=== PATIENT | male | born 1980 | race Caucasian/White ===

== ENCOUNTER 2021-07-31 13:23 | Inpatient (IN) | payer MEDICARE, OTHER ==
[~2021-07-31] VITALS: Ht 188 cm; Wt 120.7 kg
[2021-07-31 14:30] LABS: MEAN CORPUSCULAR HEMOGLOBIN 26.4 uug (23.8-33.4); MEAN CORPUSCULAR VOLUME 80.8 fL (73.0-96.2); PLATELET COUNT (AUTO) 493 K/uL (152-348)
[2021-07-31 14:37] LABS: BILIRUBIN,DIRECT 0.1 mg/dL (0.0-0.2); BILIRUBIN,TOTAL 0.3 mg/dL (0.2-1.0); CREATININE 2.6 mg/dL (0.6-1.3); POTASSIUM 4.8 mmol/L (3.5-5.1); TOTAL PROTEIN, SERUM 7.7 g/dL (6.4-8.2)
[2021-07-31] MEDS ORDERED: FERR325T28 PO (15:05)
[2021-07-31] MEDS ORDERED: METF-440 PO (15:05)
[2021-07-31] MEDS ORDERED: ASPI81TA31 PO (15:05)
[2021-07-31] MEDS ORDERED: B/P MEDICATION (15:06)
--- NOTE | 2021-07-31 15:56 | NUR ---
Patient is resting comfortably on gurney, pending blood product at this time.
--- NOTE | 2021-07-31 17:06 | NUR ---
DR [email or web address] evaluating patient in ER.
[2021-07-31] MEDS ORDERED: IV NORMAL SALINE 1000 ML BAG IV ONE (18:30)
--- NOTE | 2021-07-31 19:02 | NUR ---
Patient ate hospital-prepared dinner with good appetite. He is now resting and watching shows with his bedside TV. He is calm and cooperative. 1st unit of PRBC is infusing well. No adverse rxn seen. SBAR to GOSIA Parker and MARY ANN Nuñez. Patient is for admission for severe anemia, pending available medical-surgical nurse and [email or web address] time.
[2021-07-31] MEDS ORDERED: IV D5 1/2 NS 1000 ML 1,000 ML IV PRN (19:30)
[2021-07-31] MEDS ORDERED: ONDANSETRON 4 MG/2 ML VIAL IV PRN (19:30)
[2021-07-31] MEDS ORDERED: MORPHINE SULFATE 2 MG/1 ML DISP.SYRIN IV PRN (19:30)
[2021-07-31] MEDS ORDERED: ACETAMINOPHEN 650 MG SUPP.RECT RC PRN (19:30)
[2021-07-31] MEDS ORDERED: ENALAPRILAT DIHYDRATE 1.25 MG/1 ML VIAL IV PRN (19:30)
[2021-07-31 19:42] LABS: IRON, SERUM 11 ug/dL (50-175)
--- NOTE | 2021-07-31 21:00 | NUR ---
TOLERATED 1ST UNIT OF PRBC WITH NO REACTION NOTED.
[2021-07-31 22:40] LABS: BAND % (MANUAL) 2 % (0-10); LYMPHOCYTES % (MANUAL) 9 % (20-40); MONOCYTES % (MANUAL) 6 % (2-10); NEUTROPHILS % (MANUAL) 83 % (42-75)
[2021-07-31 22:45] VITALS: BP 112/52
--- NOTE | 2021-07-31 22:45 | NUR ---
Received patient from ED via stretcher accompanied by 2 staff members, without any incident. Patient is awake, lying in bed, resting comfortably. A/Ox4. Denies pain nor dizziness at this time. No signs of acute distress noted. Able to make needs known. Placed on patient's gown. Comfort care provided. Checked IV site patent and flushed saline lock. No erythema, bleeding or infiltration noted. Bed at lowest position, brakes on, siderails x2. Call light within reach. Will continue to monitor.
--- NOTE | 2021-07-31 22:48 | NUR ---
Personal belongings list checked done. Body assessment done. Skin is intact.
[2021-08-01] VITALS (9 sets, daily range): BP systolic 101–126; BP diastolic 32–66
--- NOTE | 2021-08-01 01:00 | NUR ---
Received portable school lunch monitor from communications equipment supervisor herson, placed EKG leads on patient,. SR on the monitor. No signs of acute distress noted. Will continue to monitor.
--- NOTE | 2021-08-01 01:10 | NUR ---
Printed EKG strip and placed on chart.
--- NOTE | 2021-08-01 06:30 | NUR ---
Patient vomited amounting to 100mls of blood with blood clots. Patient stated "I'm not dizzy. I feel fine." Pale skin noted. No signs of acute distress. Zofran PRN given. VS taken HR 1066, O2 sat 96%, BP 90/36. Modified Trendelenburg done. Called [facility] exchange and spoke with Wilian, awaiting for callback. Will continue to monitor and endorsed to AM shift RN. Addendum: 08/01/21 at 0735 by Mayda Danielle RN Charge nurse made aware.
[2021-08-01 07:15] LABS: MEAN CORPUSCULAR HEMOGLOBIN 26.6 uug (23.8-33.4); MEAN CORPUSCULAR VOLUME 80.3 fL (73.0-96.2); PLATELET COUNT (AUTO) 498 K/uL (152-348)
[2021-08-01 07:38] LABS: THYROID STIMULATING HORMONE 0.826 mIU/mL (0.358-3.740)
[2021-08-01 07:45] LABS: BILIRUBIN,TOTAL 0.6 mg/dL (0.2-1.0); MAGNESIUM 1.9 mg/dL (1.8-2.4); PHOSPHOROUS 4.5 mg/dL (2.5-4.9); POTASSIUM 4.6 mmol/L (3.5-5.1); TOTAL PROTEIN, SERUM 6.9 g/dL (6.4-8.2)
--- NOTE | 2021-08-01 07:50 | NUR ---
Dr. castro notified of pt with x1 episode of vomiting blood at this time. patient remains npo at this time, awake, states "feeling ok" reminded he is to not intake anything by mouth. Patient states understanding.
[2021-08-01] MEDS ORDERED: PANTOPRAZOLE SODIUM 40 MG VIAL IV SCH (09:00)
[2021-08-01 09:21] LABS: HEMATOCRIT 18.7 % (36.7-47.1)
[2021-08-01] MEDS: PANTOPRAZOLE SODIUM 40 MG VIAL IV SCH ×2 (09:46→20:18)
--- NOTE | 2021-08-01 12:00 | NUR ---
patient picked up by or for egd.
[2021-08-01] MEDS ORDERED: SUCCINYLCHOLINE CHLORIDE 200 MG/10 ML VIAL IV ONE (13:46)
[2021-08-01] MEDS ORDERED: SEVOFLURANE 250 ML BOTTLE IH ONE (13:46)
[2021-08-01] MEDS ORDERED: PROPOFOL 200 MG/20 ML BOTTLE IV ONE (13:46)
[2021-08-01] MEDS ORDERED: LIDOCAINE-MPF 2% 5 ML VIAL IJ ONE (13:46)
--- NOTE | 2021-08-01 15:00 | NUR ---
patient returned from egd, patient is currently infusing prbc at 125/hr, per report infusion started at 1439, patient is awake at this time and able to make needs known. Orders from OR are to transfuse 1 unit after the unit that is running is finished. order noted. vital signs in unit are bp 100/50 p: 99 t: 98.1 rr: 22. patient denies pain at this time. no c.o n/v at this time. reminded to use call light for assistance
[2021-08-01 15:36] LABS: LYMPHOCYTES % (MANUAL) 14 % (20-40); MONOCYTES % (MANUAL) 6 % (2-10); NEUTROPHILS % (MANUAL) 80 % (42-75)
--- NOTE | 2021-08-01 19:25 | NUR ---
patient stable at this time, report given to oncoming nurse, currently running prbc no s/s of allergic reaction. v/s wnl, afebrile
[2021-08-01] MEDS: IV NS 1000 ML 1,000 ML IV PRN (20:19)
[2021-08-01 20:32] LABS: *BILIRUBIN,URIN NEGATIVE (NEGATIVE); *BLOOD, URINE NEGATIVE (NEGATIVE); *CLARITY,URINE CLEAR (CLEAR); *COLOR,URINE YELLOW (YELLOW); *KETONES,URINE NEGATIVE (NEGATIVE); *UROBILINOGEN,URINE 0.2 E.U./dl (NORMAL); LEUKOCYTE ESTERASE ,URINE NEGATIVE (NEGATIVE); NITRITE, URINE NEGATIVE (NEGATIVE); UGLUCOSE NEGATIVE (NEGATIVE)
[2021-08-02] VITALS (13 sets, daily range): BP systolic 93–125; BP diastolic 36–68
[2021-08-02] MEDS: IV NS 1000 ML 1,000 ML IV PRN ×2 (04:48→13:47)
--- NOTE | 2021-08-02 05:39 | NUR ---
END OF SHIFT RE tolerated 2nd unit PRBC last night; new IVF started per Dr Guerrier' orders; tolerated ice chips; no bleeding noted; care plan explained; pt refused to have a bath and be changed; educated with the importance of hygiene; dc AC IV and new IV to right forearm; continue to monitor; continue plan of care.
[2021-08-02 06:52] LABS: MEAN CORPUSCULAR HEMOGLOBIN 27.3 uug (23.8-33.4); MEAN CORPUSCULAR VOLUME 82.4 fL (73.0-96.2); PLATELET COUNT (AUTO) 421 K/uL (152-348)
[2021-08-02 07:09] LABS: CREATININE 2.2 mg/dL (0.6-1.3); MAGNESIUM 1.8 mg/dL (1.8-2.4); PHOSPHOROUS 3.8 mg/dL (2.5-4.9); POTASSIUM 4.6 mmol/L (3.5-5.1)
[2021-08-02 09:29] LABS: HEMATOCRIT 18.9 % (36.7-47.1)
[2021-08-02] MEDS ORDERED: FUROSEMIDE 20 MG/2 ML VIAL IV PRN (09:45)
[2021-08-02] MEDS: PANTOPRAZOLE SODIUM 40 MG VIAL IV SCH ×2 (09:50→20:01)
--- NOTE | 2021-08-02 15:40 | NUR ---
transfusion started, patient with v/s wnl at this time, no signs of adverse reaction at this time.
[2021-08-03] VITALS (7 sets, daily range): BP systolic 100–135; BP diastolic 42–75
--- NOTE | 2021-08-03 06:11 | NUR ---
Slept intermittently throughout the night. Denies pain or SOB. Received 1 unit PRBCs, tolerated well with no side affects. IV site infiltrated, new IV inserted. Pt able to make needs known. No other issues or concerns at this time, will endorse to day shift.
[2021-08-03] MEDS: IV NS 1000 ML 1,000 ML IV PRN (06:15)
[2021-08-03 09:14] LABS: HEMATOCRIT 22.7 % (36.7-47.1); MEAN CORPUSCULAR HEMOGLOBIN 28.1 uug (23.8-33.4); MEAN CORPUSCULAR VOLUME 84.8 fL (73.0-96.2); PLATELET COUNT (AUTO) 367 K/uL (152-348)
[2021-08-03 09:30] LABS: CREATININE 1.3 mg/dL (0.6-1.3); MAGNESIUM 1.7 mg/dL (1.8-2.4); PHOSPHOROUS 3.4 mg/dL (2.5-4.9)
[2021-08-03] MEDS: PANTOPRAZOLE SODIUM 40 MG VIAL IV SCH ×2 (10:02→21:21)
[2021-08-03] MEDS: MAGNESIUM OXIDE 400 MG TABLET PO ONE ×2 (14:21→15:14)
[2021-08-04 00:48] VITALS: BP 125/71
--- NOTE | 2021-08-04 00:50 | NUR ---
PATIENT AWAKE IN BED. 1ST UNIT OF BLOOD STARTED TO LEFT AC #20 GAUGE. VS WNL. WILL CONTINUE TO MONITOR AND ASSESS.
[2021-08-04 01:07] VITALS: BP 116/69
[2021-08-04 01:32] VITALS: BP 132/68
[2021-08-04 03:45] VITALS: BP 138/76
--- NOTE | 2021-08-04 03:50 | NUR ---
UNIT OF BLOOD TRANSFUSED. TOLERATED WELL. VSS. NO RESP. DISTRESS NOTED. WILL CONTINUE TO MONITOR AND ASSESS.
[2021-08-04 04:27] VITALS: BP 113/70
[2021-08-04 07:56] LABS: HEMATOCRIT 24.1 % (36.7-47.1); MEAN CORPUSCULAR HEMOGLOBIN 28.8 uug (23.8-33.4); MEAN CORPUSCULAR VOLUME 85.6 fL (73.0-96.2); PLATELET COUNT (AUTO) 325 K/uL (152-348)
--- NOTE | 2021-08-04 08:00 | NUR ---
awake alert and oriented, denies of any discomfort, no bleeding noted, explaiined plan fo care- verbalized understanding, safety measures maintained, call light within reach
[2021-08-04 08:04] LABS: CREATININE 1.2 mg/dL (0.6-1.3); MAGNESIUM 1.6 mg/dL (1.8-2.4); PHOSPHOROUS 3.5 mg/dL (2.5-4.9); POTASSIUM 4.4 mmol/L (3.5-5.1)
[2021-08-04] MEDS: PANTOPRAZOLE SODIUM 40 MG VIAL IV SCH (08:30)
[2021-08-04] MEDS ORDERED: MAGNESIUM OXIDE 400 MG TABLET PO ONE (09:15)
[2021-08-04] MEDS ORDERED: PANT40TA49 PO (10:49)
[2021-08-04 11:08] VITALS: BP 122/67
--- NOTE | 2021-08-04 13:00 | NUR ---
seen by Dr Buitrago- pt is d/c today
--- NOTE | 2021-08-04 13:15 | NUR ---
discharge instructions given- verbalized understanding- informed of prescription at preferred pharmacy, states Yanely will pick him up- saline lock removed- no swelling/redness noted on site,
--- NOTE | 2021-08-04 14:30 | NUR ---
escorted to car per w/c in stable condition under Yanely's care- all belongings with him
[2021-08-04] MEDS ORDERED: PANTOPRAZOLE SODIUM 40 MG TABLET.DR PO SCH (17:00)
== END 2021-08-04 14:30 | disposition home or self-care (01) | DRG 377 ==
LOC: ER 13:23 → TRANSITION 20:40 → MEDSURG3 22:35 → TELE3 08-01 00:18 → MEDSURG3 08-02 10:38
PROVIDERS: ADMIT Internal Medicine; ATTEND Internal Medicine
PROC: 30233N1 Transfusion of Nonautologous Red Blood Cells into Peripheral Vein, Percutaneous Approach (ICD-10-PCS; principal; 2021-07-31)
PROC: 0DB68ZX Excision of Stomach, Via Natural or Artificial Opening Endoscopic, Diagnostic (ICD-10-PCS; 2021-08-01)
DX: K26.4 Chronic or unspecified duodenal ulcer with hemorrhage (principal); N17.0 Acute kidney failure with tubular necrosis; D62 Acute posthemorrhagic anemia; D72.828 Other elevated white blood cell count; E11.9 Type 2 diabetes mellitus without complications; E66.9 Obesity, unspecified; Z20.822 Contact with and (suspected) exposure to COVID-19; Z79.82 Long term (current) use of aspirin; Z79.84 Long term (current) use of oral hypoglycemic drugs; I95.9 Hypotension, unspecified; D50.9 Iron deficiency anemia, unspecified; N18.9 Chronic kidney disease, unspecified; I12.9 Hypertensive chronic kidney disease with stage 1 through stage 4 chronic kidney disease, or unspecified chronic kidney disease; Z68.34 Body mass index [BMI] 34.0-34.9, adult; K29.70 Gastritis, unspecified, without bleeding; I51.7 Cardiomegaly; R00.0 Tachycardia, unspecified; R62.50 Unspecified lack of expected normal physiological development in childhood; B96.81 Helicobacter pylori [H. pylori] as the cause of diseases classified elsewhere
CPT/HCPCS: 36415; 70030-TC; 71045; 76770; 83550; 83735; 84100; 84443; 85025; 86850; 86900; 86901; 86920; 88313-TC; 88342; 93005; 93307; A4217; A4663; C9113; G0378; J0330; J1940; J2405; J3490; J7030; J7040; J7050; P9016